=== PATIENT | male | born 2000 | race Caucasian/White ===

== ENCOUNTER 2024-06-06 16:09 | Emergency (ER) | payer BC ==
[~2024-06-06] VITALS: Ht 170.2 cm; Wt 54.4 kg
[2024-06-06 16:19] VITALS: BP_SYST 115; PULSE 98; RESP 18; TEMP 97.8; O2SAT 99
== END 2024-06-06 18:10 | disposition left against medical advice (07) ==
LOC: SED 16:09
DX: M54.50 Low back pain, unspecified (principal); Z53.21 Procedure and treatment not carried out due to patient leaving prior to being seen by health care provider